=== PATIENT | female | born 1980 | race American Indian/Alaskan Native ===

== ENCOUNTER 2016-11-06 23:52 | Emergency (ER) | payer OTHER ==
[2016-11-07 00:40] LABS: Basophils % (Auto) 1.4 % (0.0-1.8); Eosinophils % (Auto) 1.4 % (0.0-4.3); Hematocrit 34.5 % (30.3-42.9); Mean Corpuscular HGB Conc 32 % (30-34); Mean Corpuscular Volume 78 fl (79-97); Platelet Count 334 K/mm3 (140-440); Red Blood Count 4.42 M/mm3 (3.65-5.03); Red Cell Distribution Width 16.8 % (13.2-15.2); White Blood Count 9.4 K/mm3 (4.5-11.0)
[2016-11-07 00:43] LABS: Mean Corpuscular Hemoglobin 25 pg (28-32)
[2016-11-07 00:55] LABS: Anion Gap 18 mmol/L; Blood Urea Nitrogen 12 mg/dL (7-17); Calcium 8.1 mg/dL (8.4-10.2); Carbon Dioxide 24 mmol/L (22-30); Chloride 99.2 mmol/L (98-107); Glucose 107 mg/dL (65-100); Potassium 3.7 mmol/L (3.6-5.0); Sodium 137 mmol/L (137-145)
[2016-11-07 08:42] LABS: Bacteria,Urine 1+ /HPF (Negative); Bilirubin,Urine NEG (Negative); Blood,Urine MOD (Negative); Ketones,Urine NEG (Negative); Leukocyte Esterase,Urine SM (Negative); Mucus,Urine FEW /HPF; Nitrite,Urine NEG (Negative); Protein,Urine <15 mg/dL mg/dL (Negative); Urobilinogen,Urine < 2.0 mg/dL (<2.0)
--- NOTE | 2016-11-07 09:51 | Emergency Department Report ---
ED Chest Pain HPI - General Chief Complaint: Chest Pain Stated Complaint: THROAT PAIN/CHEST PAIN Time Seen by Provider: 11/07/16 09:35 Source: patient Mode of arrival: Ambulatory Limitations: No Limitations - History of Present Illness Initial Comments: Patient presents with complaints of throat and chest pain. She states she feels like something is caught in her throat. She admits to having phlegm production 2 days that has improved with drinking hot water. She states the pain is in the left side of her chest and it radiates to the left shoulder. She describes the pain as a burning pain. She does admit to shortness of breath but only after eating. She denies nausea, vomiting, dizziness. MD Complaint: chest pain -: Gradual, days(s) Onset: during rest, after eating Pain Location: left chest Pain Radiation: LUE, other Severity: moderate Severity scale (0 -10): 7 Quality: other (burning) Consistency: intermittent Improves With: nothing Worsens With: eating re: denies: nausea, vomting, diaphoresis Aspirin use within the Past 7 Days: (0) No - Related Data Home Medications Medication Instructions Recorded Confirmed Last Taken glipiZIDE [Glipizide] 5 mg PO DAILY 11/07/15 01/15/16 01/14/16 metFORMIN [Glucophage] 850 mg PO BID 11/07/15 01/15/16 01/14/16 Previous Rx's Medication Instructions Recorded Last Taken Type Ibuprofen [Motrin] 800 mg PO Q8HR PRN #30 tablet 01/14/16 01/14/16 Rx Nitrofurantoin Gila/M-Cryst 100 mg PO Q12HR #14 capsule 01/14/16 01/14/16 Rx [Macrobid CAP] Promethazine [Phenergan TAB] 25 mg PO Q6HR PRN #20 tab 01/14/16 01/14/16 Rx traMADol [Ultram 50 MG tab] 50 mg PO Q6HR PRN #20 tablet 01/14/16 01/14/16 Rx Docusate Sodium [Colace] 100 mg PO BID PRN #20 capsule 01/16/16 Unknown Rx Magnesium Citrate [Citrate of 300 ml PO NOW #1 bottle 01/16/16 Unknown Rx Magnesia] Ranitidine HCl [Heartburn Relief] 150 mg PO DAILY #30 tablet 11/07/16 Unknown Rx Allergies Allergy/AdvReac Type Severity Reaction Status Date / Time No Known Allergies Allergy Unverified 11/07/15 13:05 CARLY score - Carly Score Age > 65: (0) No Aspirin use within the Past 7 Days: (0) No 3 or more CAD Risk Factors: (0) No 2 or more Angina events in past 24 hrs: (0) No Known CAD with more than 50% Stenosis: (0) No Elevated Cardiac Markers: (0) No ST Deviation Greater than 0.5mm: (0) No CARLY Score: 0 ED Review of Systems ROS: Stated complaint: THROAT PAIN/CHEST PAIN Other details as noted in HPI Constitutional: denies: chills, fever Respiratory: denies: cough, shortness of breath, wheezing Cardiovascular: chest pain. denies: palpitations Gastrointestinal: denies: abdominal pain, nausea, diarrhea Genitourinary: denies: urgency, dysuria, discharge Musculoskeletal: denies: back pain, joint swelling, arthralgia Skin: denies: rash, lesions Neurological: denies: headache, weakness, paresthesias ED Past Medical Hx - Past Medical History Previous Medical History?: Yes Hx Diabetes: Yes - Surgical History Past Surgical History?: Yes Additional Surgical History: x 2 - Social History Smoking Status: Current Some Day Smoker - Medications Home Medications: Home Medications Medication Instructions Recorded Confirmed Last Taken Type glipiZIDE [Glipizide] 5 mg PO DAILY 11/07/15 01/15/16 01/14/16 History metFORMIN [Glucophage] 850 mg PO BID 11/07/15 01/15/16 01/14/16 History Ibuprofen [Motrin] 800 mg PO Q8HR PRN #30 tablet 01/14/16 01/15/16 01/14/16 Rx Nitrofurantoin Gila/M-Cryst 100 mg PO Q12HR #14 capsule 01/14/16 01/15/16 Rx [Macrobid CAP] Promethazine [Phenergan TAB] 25 mg PO Q6HR PRN #20 tab 01/14/16 01/15/16 Rx traMADol [Ultram 50 MG tab] 50 mg PO Q6HR PRN #20 tablet 01/14/16 01/15/1601/13 Rx Docusate Sodium [Colace] 100 mg PO BID PRN #20 capsule 01/16/16 Unknown Rx Magnesium Citrate [Citrate of 300 ml PO NOW #1 bottle 01/16/16 Unknown Rx Magnesia] Ranitidine HCl [Heartburn Relief] 150 mg PO DAILY #30 tablet 11/07/16 Unknown Rx ED Physical Exam - General Limitations: No Limitations General appearance: alert, in no apparent distress - Head Head exam: Present: atraumatic, normocephalic - Eye Eye exam: Present: normal appearance, PERRL - ENT ENT exam: Present: mucous membranes moist, TM's normal bilaterally - Expanded ENT Exam Expanded Mouth exam: Present: normal external inspection Teeth exam: Present: normal inspection Throat exam: Positive: normal inspection - Neck Neck exam: Present: normal inspection, full ROM. Absent: tenderness - Respiratory Respiratory exam: Present: normal lung sounds bilaterally. Absent: respiratory distress, wheezes, rales, rhonchi, stridor - Cardiovascular Cardiovascular Exam: Present: regular rate, normal rhythm. Absent: systolic murmur, diastolic murmur, rubs, gallop - GI/Abdominal GI/Abdominal exam: Present: soft, normal bowel sounds - Extremities Exam Extremities exam: Present: normal inspection, full ROM, normal capillary refill - Back Exam Back exam: Present: normal inspection, full ROM - Neurological Exam Neurological exam: Present: alert, oriented X3, CN II-XII intact - Psychiatric Psychiatric exam: Present: normal affect, normal mood - Skin Skin exam: Present: warm, dry, intact, normal color. Absent: rash ED Course Vital Signs 11/07/16 00:09 Temperature 98.6 F Pulse Rate 69 Respiratory 18 Rate Blood Pressure 126/96 [Right] O2 Sat by Pulse 100 Oximetry ED Medical Decision Making - Lab Data Result diagrams: 11/07/16 00:24 11/07/16 00:24 - Medical Decision Making Patient presents with left chest pain and throat pain with worsening after eating. She states she feels something stuck in her throat. Her BMP is essentially negative, troponin is negative, EKG is within normal. Possible reflux, I will give ranitidine and refer her to ENT. - Differential Diagnosis SC, reflux Critical Care Time: No Critical care attestation.: If time is entered above; I have spent that time in minutes in the direct care of this critically ill patient, excluding procedure time. ED Disposition Clinical Impression: Acid reflux Disposition: DISCHARGED TO HOME OR SELFCARE Is pt being admited?: No Does the pt Need Aspirin: No Condition: Stable Instructions: Gastroesophageal Reflux Disease (ED) Additional Instructions: Very importantly to follow up with the ENT and your PCP for further evaluation of your chest pain, throat pain. Your EKG was within normal, and your cardiac enzymes were within normal. Prescriptions: Ranitidine HCl [Heartburn Relief] 150 mg PO DAILY #30 tablet Referrals: TIFFANY ORTIZ MD [Primary Care Provider] - 3-5 Days DENISSE ARANDA MD [Staff Physician] - 3-5 Days Forms: Work/School Release Form(ED) Time of Disposition: 09:55
[2016-11-07 10:14] VITALS: BP 132/74
== END 2016-11-07 10:15 | disposition home or self-care (01) ==
LOC: ED 23:52
DX: K21.9 Gastro-esophageal reflux disease without esophagitis (principal); E11.9 Type 2 diabetes mellitus without complications; Z72.0 Tobacco use
CPT/HCPCS: 36415; 80048; 81001; 81025; 84484; 85025; 93005; 93010